=== PATIENT | male | born 1970 | race Caucasian/White ===

== ENCOUNTER 2017-09-20 04:04 | Emergency (ER) | payer MEDICAID, OTHER ==
[~2017-09-20] VITALS: Ht 172.7 cm; Wt 82.0 kg
[2017-09-20] MEDS ORDERED: TETANUS, DIPHTHERIA, PERTUSSIS VAC/PF 0.5ML (>7YR OLD) IM ONE (06:45)
[2017-09-20] MEDS ORDERED: SODIUM CHLORIDE 0.9% 1,000 ML IV ONE (07:27)
[2017-09-20 09:14] LABS: *AMPHETAMINES SCREEN URINE PRESUMTIVE POSITIVE (NEGATIVE); *BARBITURATES SCREEN URINE NEGATIVE (NEGATIVE); *BENZODIAZEPINES SCREEN URINE NEGATIVE (NEGATIVE); *COCAINE SCREEN URINE PRESUMTIVE POSITIVE (NEGATIVE); CANNABINOID URINE SCREEN PRESUMTIVE POSITIVE (NEGATIVE); METHADONE URINE SCREEN NEGATIVE (NEGATIVE); OPIATES URINE SCREEN NEGATIVE (NEGATIVE); PHENCYCLIDINE URINE SCREEN NEGATIVE (NEGATIVE)
[2017-09-20 10:01] VITALS: BP 128/98
== END 2017-09-20 10:14 | disposition home or self-care (01) ==
LOC: ER 04:04
DX: S00.01XA Abrasion of scalp, initial encounter (principal); F10.20 Alcohol dependence, uncomplicated; F15.10 Other stimulant abuse, uncomplicated; F12.10 Cannabis abuse, uncomplicated; F14.10 Cocaine abuse, uncomplicated; Y00.XXXA Assault by blunt object, initial encounter; Y93.89 Activity, other specified; Y92.89 Other specified places as the place of occurrence of the external cause; Y99.8 Other external cause status
CPT/HCPCS: 36415; 70450; 72125; 80305; 96360; 99285; G0482; J7030; Z7610; 90715

== ENCOUNTER 2018-03-23 17:27 | Observation (INO) | payer MEDICAID ==
[~2018-03-23] VITALS: Ht 185.4 cm; Wt 83.9 kg
[2018-03-24] MEDS ORDERED: ONDANSETRON HCL 4MG/2ML VIAL IV STA (00:55)
[2018-03-24] MEDS ORDERED: SODIUM CHLORIDE 0.9% 1,000 ML IV ONE (00:55)
[2018-03-24] MEDS ORDERED: MORPHINE SULFATE 4 MG/ML CPJ (NOT FOR IM USE) IV STA (00:55)
[2018-03-24 01:20] LABS: EOSINOPHILS % 4.5 % (0.0-5.0); HEMATOCRIT. 40.3 % (42.0-52.0); HEMOGLOBIN. 13.2 g/dL (14.0-18.0); MEAN CORPUSCULAR HEMOGLOBIN 30.3 pg (28.0-32.0); MEAN CORPUSCULAR VOLUME 92.4 fL (80.0-94.0); MEAN PLATELET VOLUME 7.3 fl (7.4-10.4); MONOCYTES % 10.4 % (2.0-8.0); NEUTROPHILS % 51.1 % (40.0-76.0); PLATELET 357 x1000/uL (130-400); RED BLOOD CELL COUNT 4.36 mill/uL (4.7-6.1); RED CELL DISTRIBUTION WIDTH 15.7 % (11.6-14.6)
[2018-03-24 01:21] LABS: CHLORIDE 107 mEq/L (98-107)
[2018-03-24] MEDS ORDERED: IOHEXOL-300 100 ML BOTTLE ONE (02:39)
[2018-03-24 05:48] LABS: CLARITY URINE CLEAR (CLEAR); COLOR URINE YELLOW (YELLOW); KETONES URINE NEGATIVE (NEGATIVE); LEUKOCYTE ESTERASE URINE NEGATIVE (NEGATIVE); NITRITE URINE NEGATIVE (NEGATIVE); OCCULT BLOOD URINE NEGATIVE (NEGATIVE); PROTEIN URINE NEGATIVE (NEGATIVE); SPECIFIC GRAVITY URINE 1.053 (1.005-1.030)
[2018-03-24 09:00] VITALS: BP 107/73
[2018-03-24 10:00] VITALS: BP 107/73
[2018-03-24 12:00] VITALS: BP 102/63
[2018-03-24] MEDS ORDERED: MULT-1116 PO (12:52)
[2018-03-24] MEDS ORDERED: CYAN500T47 MT (12:52)
[2018-03-24 16:00] VITALS: BP 103/61
[2018-03-24] MEDS ORDERED: TRAMADOL 50MG TABLET PO PRN (17:15)
[2018-03-24 20:00] VITALS: BP 110/72
[2018-03-25] VITALS: BP 115/72
[2018-03-25 04:00] VITALS: BP 125/84
[2018-03-25 08:00] VITALS: BP 120/82
[2018-03-25 12:00] VITALS: BP 121/84
[2018-03-25 15:03] VITALS: BP 121/84
== END 2018-03-25 15:55 | disposition home or self-care (01) ==
LOC: ER 17:27 → INTOOBSV 03-24 04:23 → 6EST 03-24 04:23 → ENRESERV 03-24 08:24
PROVIDERS: ADMIT Internal Medicine; ATTEND Internal Medicine
DX: K52.9 Noninfective gastroenteritis and colitis, unspecified (principal); K40.90 Unilateral inguinal hernia, without obstruction or gangrene, not specified as recurrent; R18.8 Other ascites; F17.200 Nicotine dependence, unspecified, uncomplicated; Z59.0 Homelessness
CPT/HCPCS: 36415; 74177; 80053; 81003; 83690; 85025; 96361; 96374; 96375; 99285; G0378; J2270; J2405; J7030; Q9967

== ENCOUNTER 2024-06-18 01:09 | Emergency (ER) | payer MEDICAID, OTHER ==
[~2024-06-18] VITALS: Ht 172.7 cm; Wt 70.0 kg
[~2024-06-18 01:09] MED LIST: CYAN500T47 MT; MULT-1116 PO
[2024-06-18 01:11] VITALS: O2SAT 96
[2024-06-18 04:25] VITALS: BP 100/68; PULSE 78; RESP 16; TEMP 36.66960; O2SAT 98
== END 2024-06-18 08:04 | disposition home or self-care (01) ==
LOC: ER 01:09
DX: F19.10 Other psychoactive substance abuse, uncomplicated (principal); F12.10 Cannabis abuse, uncomplicated; F15.10 Other stimulant abuse, uncomplicated
CPT/HCPCS: 99283